=== PATIENT | male | born 1975 | race Caucasian/White ===

== ENCOUNTER 2016-12-20 18:30 | Emergency (ER) | payer OTHER ==
[~2016-12-20] VITALS: Ht 172.7 cm; Wt 126.1 kg
[2016-12-20 20:12] VITALS: BP 143/58
== END 2016-12-20 20:19 | disposition home or self-care (01) ==
LOC: ER 18:30
DX: S01.81XA Laceration without foreign body of other part of head, initial encounter (principal); F10.99 Alcohol use, unspecified with unspecified alcohol-induced disorder; W50.0XXA Accidental hit or strike by another person, initial encounter; Y93.64 Activity, baseball; Y92.39 Other specified sports and athletic area as the place of occurrence of the external cause; Y99.8 Other external cause status